=== PATIENT | female | born 1970 | race Two or more races ===

== ENCOUNTER 2023-07-24 09:44 | Emergency (ER) | payer OTHER ==
[2023-07-24 10:01] VITALS: BP 147/77; PULSE 76; RESP 18; TEMP 98; BMI 30.2
[2023-07-24] MEDS ORDERED: KETOROLAC TROMETHAMINE 30 MG/1 ML VIAL ONE (12:37)
[2023-07-24] MEDS: KETOROLAC TROMETHAMINE 30 MG/1 ML VIAL IM ONE (12:41)
== END 2023-07-24 13:20 | disposition home or self-care (01) ==
LOC: EDBD → JERFT 09:44
PROC: 3E0233Z Introduction of Anti-inflammatory into Muscle, Percutaneous Approach (ICD-10-PCS; principal; 2023-07-24)
DX: M79.604 Pain in right leg (principal); I83.891 Varicose veins of right lower extremity with other complications
CPT/HCPCS: 93971-TC; 99284-25